=== PATIENT | male | born 1970 | race Caucasian/White ===

== ENCOUNTER 2022-05-14 13:09 | Emergency (ER) | payer OTHER ==
[~2022-05-14] VITALS: Ht 185.4 cm; Wt 99.3 kg
[2022-05-14 13:13] VITALS: BP 183/127
--- NOTE | 2022-05-14 17:21 | NUR ---
PATIENT LEFT WITHOUT BEING SEEN BY DR. CARTER. NO FURTHER CARE PROVIDED FOR PATIENT.
== END 2022-05-14 17:21 | disposition left against medical advice (07) ==
LOC: MED 13:09
DX: M54.2 Cervicalgia (principal); Z53.21 Procedure and treatment not carried out due to patient leaving prior to being seen by health care provider